=== PATIENT | male | born 1955 | race Caucasian/White ===

== ENCOUNTER 2016-11-03 10:36 | Observation (INO) ==
[2016-11-03] MEDS ORDERED: LR 1,000 ML ONE (11:27)
[2016-11-03] MEDS ORDERED: DIPRIVAN 1% 500 MG/50 ML BOTTLE ONE (12:19)
[2016-11-03] MEDS ORDERED: XYLOCAINE-MPF 2% ONE (12:24)
[2016-11-03] MEDS ORDERED: FENTANYL ONE (12:25)
[2016-11-03] MEDS ORDERED: DIPRIVAN 1% ONE (12:58)
[2016-11-03 14:37] LABS: MANUAL DIFF NEEDED? NO
[2016-11-03 14:45] LABS: BASO% 0.3 % (0.0-0.8); EOS# 0.25 X1000 (0.0-0.7); EOS% 3.7 % (0.0-10.0); HEMATOCRIT 23.4 % (42.0-52.0); HEMOGLOBIN 7.5 g/dL (14.0-18.0); IMM GRAN# 0.05 X1000 (0.0-0.04); IMM GRAN% 0.7 % (0.0-0.5); LYMPH# 1.96 X1000 (1.2-3.4); LYMPH% 29.1 % (20.5-51.1); MCH 28.8 PG (27-31); MCHC 32.1 g/dL (33-37); MONO% 8.9 % (1.7-9.3); MPV 10.4 FL (7.4-10.4); NEUT% 57.3 % (42.2-75.2); PLT 190 X1000 (130-400)
--- NOTE | 2016-11-03 15:07 | Diag Imaging Result Doc PS360 ---
EXAM: CT COLOGRAPHY DXTIC HISTORY: failed colonoscopy, rectal bleeding TECHNIQUE: CT coronary artery without contrast COMMENT: There is some consolidation inferolaterally in the right middle lobe which is not apparent on the previous study of 01/26/2013. Minimal atelectasis or fibrosis is present in the posterior costophrenic sulcus of the left lower lobe which was also not apparent on the previous exam. The appendix is normal in appearance. There is no evidence of stricture or fixed intraluminal filling defect or mucosal thickening in the right colon. No abnormal fluid collections are present in the abdomen. Some portions of the left colon are incompletely distended and there is diverticulosis in the descending colon. There is a tiny stone in the left renal collecting system. There is no evidence of hydronephrosis. IMPRESSION: No evidence of mucosal lesion in the right colon. Left nephrolithiasis. Electronically signed by Geraldo Valdez 11/03/2016 3:05 PM
--- NOTE | 2016-11-03 17:55 | OPERATIVE NOTE ---
PROCEDURE DATE: 11/03/2016 PREOP: Heme-positive stool with rectal bleeding. 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 PROCEDURE: EGD and colonoscopy. DESCRIPTION OF PROCEDURE: The patient is brought to the GI lab after satisfactory IV sedation with propofol and anesthesia standby. Flexible gastroscope was introduced transorally without difficulty. Esophagus was normal down to 42 cm which point the GE junction was encountered. There were no varices, ulcerations, or strictures. Stomach revealed only very mild gastritis. Pylorus and duodenum were normal. There was no blood in the stomach. The scope was brought back into the stomach from the duodenum. On retroflexion there was no ulceration at the lesser curve or the GE junction. The scope was gradually removed. The patient tolerated the procedure well. The bed was then turned. Rectal exam revealed some small external internal hemorrhoids and probable heme-positive stool on examining finger. Prostate is not enlarged. Colonoscope was introduced without difficulty. Rectum was otherwise normal. There were rare diverticula seen in the sigmoid. Multiple sticky small implants of probable heme-positive stool were seen all the way around to the ascending colon and cecal area. The cecum was not completely visualized. The patient is nearly 400 pounds and it was difficult to maneuver him around. We did get 1 glimpse of the cecum that appeared to be the same consistency with more heme-positive areas. 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 The scope was gradually removed after multiple attempts. The patient will undergo virtual colonoscopy today to rule out any other pathology and will check a blood count to see what it is and consider for right colectomy if needed. cc: Rell Boudreaux MD
[2016-11-03] MEDS ORDERED: NS 500 ML ONE (18:09)
[2016-11-04] MEDS: D5 1/2 NS 1,000 ML IV SCH ×2 (04:29→17:38)
--- NOTE | 2016-11-04 06:49 | PROGRESS NOTE ---
DATE: 11/04/2016 SUBJECTIVE: Patient says he is doing okay. He has got no abdominal pain. He did have 1 bowel movement. He reports that he did not have significant amount of tarry stool. OBJECTIVE: Vital Signs: Patient is currently afebrile. His vital signs are stable. General Examination: No acute distress. male, looks stated age. HEENT: Normocephalic, atraumatic. Pupils equal, round, react to light. Mucous membranes moist. Oropharynx benign. Neck: Supple. Trachea midline. Cardiovascular: Regular rate and rhythm. Lungs: Grossly clear. Abdomen: Soft, appropriately tender. Nondistended and nontender. Extremities: Moves all extremities. Neurologic: Grossly intact. Skin: No signs of jaundice. Vascular: All extremities perfused. Laboratory: Appears to be pending for this morning. ASSESSMENT AND PLAN: A 61-year-old, male initially admitted by Dr. Rell Boudreaux for a gastrointestinal bleed, now hospital day number 2. Gastrointestinal bleed. At this time, he does not have any signs of continued gastrointestinal bleed. We will continue to monitor. His labs are pending. He did get transfused blood. We will need to see if there are any signs of continued bleeding. If he does not seem to have any signs, may monitor for another day or 2 but otherwise continue current treatment. cc: MD Rell Ma MD
[2016-11-04 06:50] LABS: AGAP 12; BUN 9 mg/dL (8-22); CALCIUM 7.7 mg/dL (8.8-10.2); CHLORIDE 104 mmol/L (98-107); COSMO 284; SODIUM 142 mmol/L (136-145); TCO2 26 mmol/L (25-35)
[2016-11-04 07:21] LABS: MANUAL DIFF NEEDED? NO
[2016-11-04 07:28] LABS: BASO% 0.1 % (0.0-0.8); EOS# 0.22 X1000 (0.0-0.7); EOS% 3.2 % (0.0-10.0); HEMATOCRIT 26.6 % (42.0-52.0); HEMOGLOBIN 8.7 g/dL (14.0-18.0); IMM GRAN# 0.04 X1000 (0.0-0.04); IMM GRAN% 0.6 % (0.0-0.5); LYMPH# 1.73 X1000 (1.2-3.4); LYMPH% 25.3 % (20.5-51.1); MCH 28.9 PG (27-31); MCHC 32.7 g/dL (33-37); MCV 88.4 FL (81-99); MONO# 0.63 X1000 (0.11-0.59); MONO% 9.2 % (1.7-9.3); MPV 9.9 FL (7.4-10.4); NEUT% 61.6 % (42.2-75.2); PLT 194 X1000 (130-400); RBC 3.01 XMIL (4.7-6.1)
--- NOTE | 2016-11-04 09:55 | Diag Imaging Result Doc PS360 ---
CHEST-PORTABLE - 11/04/2016 INDICATION: chest exam TECHNIQUE: COMPARISON: 04/03/2016 FINDINGS: The lungs are normally expanded and clear. Heart size and mediastinal contours are normal. No pneumothorax or pleural effusion. IMPRESSION: Negative exam. Electronically signed by Rj Baker 11/04/2016 9:53 AM
--- NOTE | 2016-11-04 10:51 | EKG Report ---
Test Performed on : 11/04/2016 09:27:21 AM Test Reason : ekg reading Blood Pressure : / mmHG Vent. Rate : 086 BPM Atrial Rate : 086 BPM P-R Int : 162 ms QRS Dur : 104 ms QT Int : 358 ms P-R-T Axes : 062 015 049 degrees QTc Int : 428 ms Normal sinus rhythm. Normal ECG When compared with ECG of 22-JUL-2009 20:17, premature ventricular complexes. are no longer present Confirmed by Gregg Garvey DO ([id number]) on 11/04/2016 6:19:40 PM
[2016-11-04] MEDS: PRINIVIL PO SCH (17:56)
[2016-11-04] MEDS: ZYLOPRIM PO SCH (17:56)
[2016-11-04] MEDS: CELEBREX PO SCH (17:57)
[2016-11-04] MEDS ORDERED: ZYLOPRIM PO ONE (18:00)
[2016-11-04] MEDS ORDERED: PRINIVIL PO ONE (18:00)
[2016-11-04 19:29] LABS: HEMATOCRIT 30.8 % (42.0-52.0); HEMOGLOBIN 10.3 g/dL (14.0-18.0)
[2016-11-05 05:38] LABS: MANUAL DIFF NEEDED? NO
[2016-11-05 05:47] LABS: BASO% 0.2 % (0.0-0.8); EOS# 0.27 X1000 (0.0-0.7); EOS% 4.1 % (0.0-10.0); HEMATOCRIT 30.6 % (42.0-52.0); HEMOGLOBIN 10.2 g/dL (14.0-18.0); IMM GRAN# 0.02 X1000 (0.0-0.04); IMM GRAN% 0.3 % (0.0-0.5); LYMPH# 1.69 X1000 (1.2-3.4); MCH 29.6 PG (27-31); MCHC 33.3 g/dL (33-37); MCV 88.7 FL (81-99); MONO# 0.84 X1000 (0.11-0.59); MONO% 12.9 % (1.7-9.3); MPV 10.5 FL (7.4-10.4); NEUT% 56.5 % (42.2-75.2); PLT 198 X1000 (130-400); RBC 3.45 XMIL (4.7-6.1)
[2016-11-05 06:20] LABS: AGAP 13; BUN 10 mg/dL (8-22); CALCIUM 8.2 mg/dL (8.8-10.2); CHLORIDE 103 mmol/L (98-107); COSMO 286; POTASSIUM 3.9 mmol/L (3.5-5.1); SODIUM 143 mmol/L (136-145); TCO2 27 mmol/L (25-35)
--- NOTE | 2016-11-05 06:41 | PROGRESS NOTE ---
DATE: 11/05/2016 SUBJECTIVE: Patient doing okay. He has had no more dark tarry stools. He has tolerated his diet. OBJECTIVE: Vital Signs: Patient is currently afebrile. His vital signs are stable. General: No acute distress. Cardiovascular: Regular rate and rhythm. Lungs: Grossly clear. Abdomen: Soft, nontender, nondistended. Extremities: Moves all extremities. Neurologic: Grossly intact. Skin: No signs of jaundice. Vascular: All extremities perfused. LABORATORY: Hematocrit 30. ASSESSMENT/PLAN: A 61-year-old male, initially admitted by Dr. Rell Boudreaux for gastrointestinal bleeding, now hospital day #3. Gastrointestinal bleed. At this time, I think it has clinically resolved. I will discuss this case with Dr. Boudreaux. Potentially he could be discharged today. cc: MD Rell Ma MD
[2016-11-05 07:23] VITALS: BP 134/75
[2016-11-05] MEDS: ZYLOPRIM PO SCH (08:48)
[2016-11-05] MEDS: PRINIVIL PO SCH (08:48)
[2016-11-05] MEDS: CELEBREX PO SCH (08:48)
[2016-11-05] MEDS ORDERED: RYTHMOL SR PO SCH (09:00)
== END 2016-11-05 09:51 | disposition home or self-care (01) ==
LOC: 4N 10:36 → OR 10:36
PROVIDERS: ADMIT Surgery; ATTEND Surgery